=== PATIENT | male | born 2000 | race African-American/Black ===

== ENCOUNTER 2021-02-25 13:44 | Emergency (ER) | payer BC, MEDICAID ==
[~2021-02-25] VITALS: Ht 177.8 cm; Wt 91.0 kg
[2021-02-25] MEDS ORDERED: KETOROLAC 60MG/2ML VIAL IM ONE (16:00)
[2021-02-25] MEDS ORDERED: T3 PO ×2 (17:48→17:56)
[2021-02-25 18:36] VITALS: BP 124/71
== END 2021-02-25 18:37 | disposition home or self-care (01) ==
LOC: ER 14:37
DX: S93.402A Sprain of unspecified ligament of left ankle, initial encounter (principal); F12.10 Cannabis abuse, uncomplicated; Z88.0 Allergy status to penicillin; W01.0XXA Fall on same level from slipping, tripping and stumbling without subsequent striking against object, initial encounter; Y93.89 Activity, other specified; Y92.488 Other paved roadways as the place of occurrence of the external cause
CPT/HCPCS: 29515; 73610; 96372; 99283; J1885; Z7610

== ENCOUNTER 2021-04-30 15:00 | Emergency (ER) | payer MEDICAID ==
[~2021-04-30] VITALS: Ht 180.3 cm; Wt 91.0 kg
[~2021-04-30 15:00] MED LIST: T3 PO
[2021-04-30] MEDS ORDERED: HYDR30CR80 TP (16:23)
[2021-04-30] MEDS ORDERED: DOCU-138 MT (16:23)
[2021-04-30 16:44] VITALS: BP 132/78
== END 2021-04-30 16:45 | disposition home or self-care (01) ==
LOC: ER 15:00
DX: K64.4 Residual hemorrhoidal skin tags (principal); Z88.0 Allergy status to penicillin
CPT/HCPCS: 99281

== ENCOUNTER 2022-04-29 17:26 | Emergency (ER) | payer MEDICAID ==
[~2022-04-29] VITALS: Ht 177.8 cm; Wt 87.0 kg
[~2022-04-29 17:26] MED LIST changes: +DOCU-138 MT; +HYDR30CR80 TP
[2022-04-29] MEDS ORDERED: IBUPROFEN 400MG TABLET PO ONE (18:15)
[2022-04-29] MEDS ORDERED: ACETAMINOPHEN 325MG TABLET PO ONE (18:15)
[2022-04-29] MEDS ORDERED: TETANUS, DIPHTHERIA, PERTUSSIS VAC/PF 0.5ML (>10YR OLD) IM ONE (18:15)
[2022-04-29] MEDS ORDERED: LIDOCAINE HCL/EPINEPHRINE 1%-EPI 1:100,000 20 ML VIAL INFIL ONE (18:15)
[2022-04-29] MEDS ORDERED: IBUP-2028 MT (19:16)
[2022-04-29] MEDS ORDERED: TOPUD PO (19:16)
[2022-04-29 19:37] VITALS: BP 121/67
== END 2022-04-29 19:38 | disposition home or self-care (01) ==
LOC: ER 17:26
DX: S51.812A Laceration without foreign body of left forearm, initial encounter (principal); Z87.891 Personal history of nicotine dependence; Y08.89XA Assault by other specified means, initial encounter; Y93.89 Activity, other specified; Y92.89 Other specified places as the place of occurrence of the external cause; Y99.8 Other external cause status
CPT/HCPCS: 12002; 73060; 73090; 90471; 90715; 99284; J3490

== ENCOUNTER 2022-05-10 10:33 | Emergency (ER) | payer MEDICAID ==
[~2022-05-10] VITALS: Ht 177.8 cm; Wt 87.0 kg
[~2022-05-10 10:33] MED LIST changes: +IBUP-2028 MT; +TOPUD PO
[2022-05-10 10:48] VITALS: BP 118/73
[2022-05-10] MEDS ORDERED: BACITRACIN ZINC OINT UDPKT TOP NR (12:00)
== END 2022-05-10 12:26 | disposition home or self-care (01) ==
LOC: ER 10:33
DX: S51.812D Laceration without foreign body of left forearm, subsequent encounter (principal); Z48.02 Encounter for removal of sutures; X58.XXXD Exposure to other specified factors, subsequent encounter
CPT/HCPCS: 99281; Z7610